=== PATIENT | male | born 1995 | race Asian ===

== ENCOUNTER 2017-09-12 01:01 | Emergency (ER) | payer OTHER ==
[~2017-09-12] VITALS: Ht 170.2 cm; Wt 62.1 kg
[2017-09-12] MEDS ORDERED: DIPH,PERTUSS(ACELL),TET VAC/PF 0.5 ML IM-VACC ONE ×2 (01:30→01:33)
[2017-09-12 03:14] VITALS: BP 130/60
== END 2017-09-12 03:17 | disposition home or self-care (01) ==
LOC: ED 03:00
DX: S61.213A Laceration without foreign body of left middle finger without damage to nail, initial encounter (principal); L03.90 Cellulitis, unspecified; W26.0XXA Contact with knife, initial encounter; Y93.89 Activity, other specified; Y99.8 Other external cause status; Y92.89 Other specified places as the place of occurrence of the external cause
CPT/HCPCS: 12001; 90471; 90715

== ENCOUNTER 2019-12-31 17:51 | Emergency (ER) | payer SELFPAY ==
[~2019-12-31] VITALS: Ht 170.2 cm; Wt 62.0 kg
[2019-12-31 17:56] VITALS: BP 142/93
--- NOTE | 2019-12-31 18:18 | NUR ---
SEEN BY [employer]E W[employer] D[employer]ER (CHRISSY).
--- NOTE | 2019-12-31 18:37 | NUR ---
Patient given discharge instructions and Rx, they have confirmed that they understand the instructions. Patient ambulatory with steady gait.
== END 2019-12-31 18:39 | disposition home or self-care (01) ==
LOC: ED 18:33
DX: R44.0 Auditory hallucinations (principal)
CPT/HCPCS: 99283